=== PATIENT | female | born 1960 | race Caucasian/White ===

== ENCOUNTER 2019-07-10 13:11 | Day surgery (SDC) | payer BC ==
[~2019-07-10 13:11] MED LIST: Lidocaine 1%/Sod Bicarbonate in NS 8.4% 1 ML Syringe IDERM PRN; Sodium Chloride 0.9% 10 ML Syringe FLUSH PRN
[2019-07-10] MEDS ORDERED: Lidocaine 1% 50 ML MDV ONE (13:15)
[2019-07-10] MEDS ORDERED: Lactated Ringers 1,000 ML IV SCH (13:15)
[2019-07-10] MEDS ORDERED: Propofol 200 MG/20 ML SDV ONE (13:23)
[2019-07-10] MEDS ORDERED: Rocuronium 50 MG/5 ML Vial ONE (13:23)
[2019-07-10] MEDS ORDERED: fentaNYL 250 MCG/5 ML SDV ONE (13:23)
[2019-07-10] MEDS ORDERED: Lidocaine 1% 4 ML ONE (13:23)
[2019-07-10] MEDS ORDERED: Midazolam 1 MG/ML 2 ML SDV ONE (13:23)
[2019-07-10] MEDS ORDERED: Ondansetron 4 MG/2 ML SDV ONE (13:23)
[2019-07-10] MEDS ORDERED: Metoprolol Succinate 25 MG Tab.ER PO SCH (13:35)
--- NOTE | 2019-07-10 13:42 | PCM.PREANE ---
Preanesthetic Assessment - Procedure Proposed Procedure: lap choley - Anesthesia/Transfusion/Family Hx Anesthesia History: Prior Anesthesia Reaction Type of Anesthesia Reaction: Other (see below) (woke up with anesthesia) Family History of Anesthesia Reaction: No Transfusion History: No Prior Transfusion(s) - Review of Systems General: Fever, Weakness, Appetite (no appetite) Pulmonary: No Symptoms Cardiovascular: No Symptoms Gastrointestinal: Abdominal Pain (started wednesday afternoon), Decreased Appetite, Nausea, Vomiting (yesterday) Neurological: No Symptoms Other: Reports: Thyroid Problems (nodule on thyroid- no problems), Anxiety - Physical Assessment NPO Status Date: 07/09/19 NPO Status Time: 23:00 (sip of water) Vital Signs: 138/64 100 97% 99.9 Height: 5 ft 8 in Weight: 88.451 kg ASA Class: 2E Mental Status: Alert & Oriented x3 Airway Class: Mallampati = 1 Dentition: Reports: Normal Dentition Thyro-Mental Finger Breadths: 3 Mouth Opening Finger Breadths: 3 ROM/Head Extension: Full Lungs: Clear to Auscultation, Normal Respiratory Effort Cardiovascular: Regular Rate, Regular Rhythm - Allergies Allergies/Adverse Reactions: Allergies Allergy/AdvReac Type Severity Reaction Status Date / Time Penicillins Allergy Cannot Verified 07/10/19 13:35 Remember pregabalin [From Lyrica] Allergy Cannot Verified 07/10/19 13:35 Remember - Blood Blood Available: No - Anesthesia Plan Beta Rasheed: Metoprolol Med Last Dose Date: 07/10/19 Med Last Dose Time: 13:42 - Acknowledgements Anesthesia Type Planned: General Anesthesia Pt an Appropriate Candidate for the Planned Anesthesia: Yes Alternatives and Risks of Anesthesia Discussed w Pt/Guardian: Yes Pt/Guardian Understands and Agrees with Anesthesia Plan: Yes PreAnesthesia Questionnaire Cardiovascular History: Reports: Hypertension Respiratory History: Reports: Other (See Below) (seasonal allergies- not used inhaler for a while) Gastrointestinal History: Reports: GERD Psychiatric History: Reports: ADHD, Anxiety Oncologic (Cancer) History: Reports: None - Past Surgical History HEENT Surgical History: Reports: Oral Surgery Female Surgical History: Reports: Section, D&C Musculoskeletal Surgical History: Reports: Other (See Below) (ankle) - SUBSTANCE USE Smoking Status *Q: Never Smoker Tobacco Use Within Last Twelve Months: No Second Hand Smoke Exposure: No Days Per Week of Alcohol Use: 1 (rare) Recreational Drug Use History: No - CURRENT (IN HOUSE) MEDS Current Meds: Current Medications Lactated Ringer's (Ringers, Lactated) 1,000 mls @ 125 mls/hr IV ASDIRECTED CARSON Stop: 07/10/19 23:00 Lidocaine/Sodium Bicarbonate (Buffered Lidocaine 1% In Ns 8.4%) 0.25 ml IDERM ONETIME PRN PRN Reason: Prior to IV Start Stop: 07/10/19 23:00 Metoprolol Succinate (Toprol Xl) 25 mg PO ONETIME CARSON Sodium Chloride (Saline Flush) 10 ml FLUSH ASDIRECTED PRN PRN Reason: Keep Vein Open Stop: 07/10/19 23:00 Discontinued Medications Fentanyl (Sublimaze) Confirm Administered Dose 250 mcg .ROUTE .STK-MED ONE Stop: 07/10/19 13:24 Lidocaine HCl (Xylocaine-Mpf 1%) Confirm Administered Dose 4 mls @ as directed .ROUTE .STK-MED ONE Stop: 07/10/19 13:24 Lidocaine HCl (Xylocaine 1%) Confirm Administered Dose 50 ml .ROUTE .STK-MED ONE Stop: 07/10/19 13:16 Midazolam HCl (Versed 1 Mg/Ml) Confirm Administered Dose 2 mg .ROUTE .STK-MED ONE Stop: 07/10/19 13:24 Ondansetron HCl (Zofran) Confirm Administered Dose 4 mg .ROUTE .STK-MED ONE Stop: 07/10/19 13:24 Propofol (Diprivan 20 Ml) Confirm Administered Dose 200 mg .ROUTE .STK-MED ONE Stop: 07/10/19 13:24 Rocuronium Wesley (Zemuron) Confirm Administered Dose 50 mg .ROUTE .STK-MED ONE Stop: 07/10/19 13:24
[2019-07-10] MEDS ORDERED: Ertapenem 1 GM in Sodium Chloride 0.9% 50 ML IV STA (14:01)
[2019-07-10] MEDS ORDERED: Ondansetron 4 MG/2 ML SDV IVPUSH PRN (14:25)
[2019-07-10] MEDS ORDERED: fentaNYL 100 MCG/2 ML SDV IVPUSH PRN (14:25)
[2019-07-10] MEDS ORDERED: HYDROmorphone 0.5 MG/0.5 ML Syringe IVPUSH PRN (14:25)
[2019-07-10] MEDS ORDERED: Dexamethasone 4 MG/ML 5 ML MDV ONE (14:30)
[2019-07-10] MEDS ORDERED: HYDROmorphone 0.5 MG/0.5 ML Syringe ONE (14:42)
[2019-07-10] MEDS ORDERED: fentaNYL 100 MCG/2 ML SDV ONE (15:25)
[2019-07-10] MEDS ORDERED: Lactated Ringers 1,000 ML ONE (15:29)
[2019-07-10] MEDS ORDERED: Ketorolac 30 MG/ML SDV ONE (15:51)
--- NOTE | 2019-07-10 16:43 | PCM.POSTAN ---
POST ANESTHESIA ASSESSMENT - MENTAL STATUS Mental Status: Alert, Oriented, Somnolent - VITAL SIGNS Vital Signs: Last Vital Signs Temp 99.9 F 07/10/19 13:40 Pulse 100 07/10/19 13:51 Resp 20 07/10/19 13:40 BP 138/64 07/10/19 13:51 Pulse Ox 97 07/10/19 13:40 1637 132/63 88 11 98.3 100% - RESPIRATORY Respiratory Status: Respiratory Rate WNL, Airway Patent, O2 Saturation Stable - CARDIOVASCULAR CV Status: Pulse Rate WNL, Blood Pressure Stable - GASTROINTESTINAL GI Status: No Symptoms - PAIN Pain Score: 0 - POST OP HYDRATION Hydration Status: Adequate & Stable
--- NOTE | 2019-07-10 17:24 | PCM48HPAN ---
Post Anesthesia Note - EVALUATION WITHIN 48HRS OF ANESTHETIC Vital Signs in Normal Range: Yes Patient Participated in Evaluation: Yes Respiratory Function Stable: Yes Airway Patent: Yes Cardiovascular Function Stable: Yes Hydration Status Stable: Yes Pain Control Satisfactory: Yes Nausea and Vomiting Control Satisfactory: Yes Mental Status Recovered: Yes (feels better. Rests ) Vital Signs: Last Vital Signs Temp 98.1 F 07/10/19 17:15 Pulse 79 07/10/19 17:15 Resp 11 L 07/10/19 17:15 BP 119/63 07/10/19 17:15 Pulse Ox 95 07/10/19 17:15
--- NOTE | 2019-07-10 19:28 | OR ---
DATE OF OPERATION: 07/10/2019 SURGEON: Dex Butt MD PREOPERATIVE DIAGNOSIS: Acute cholecystitis. POSTOPERATIVE DIAGNOSIS: Acute cholecystitis. OPERATION PERFORMED: Laparoscopic cholecystectomy. ESTIMATED BLOOD LOSS: 50 mL. ANESTHESIA: General endotracheal. COMPLICATIONS: None. NEED FOR TOOL PROCUREMENT COORDINATOR: Skilled assistance was needed in this case. The business services assistant helped with patient positioning, preparation of the patient preop, managing the laparoscopic camera during the operation, and wound dressing at the end of the case. INDICATION AND CONSENT: The patient is a 58-year-old, who has been having biliary colic for many years. The patient had another attack on Wednesday, that pain persisted over the ensuing 2 days. Eventually, the patient went to the emergency department in [facility] for evaluation. Symptoms also included nausea and vomiting. Upon evaluation, white count was 12.5. The patient was afebrile. Ultrasound revealed findings concerning for acute cholecystitis. The patient was transferred here for surgical management. I saw the patient in the emergency department, confirmed the exam, and recommended to proceed with laparoscopic cholecystectomy, possible open. I discussed with the patient possible risks including infection, bleeding, injury to adjacent structures including the liver, stomach, biliary tree, bile leak, and wound complication. The patient understood, agreed to proceed with the procedure, and informed consent was obtained. DESCRIPTION OF PROCEDURE: The patient was taken to the operating room, placed in a supine position for induction of general endotracheal anesthesia. Preop antibiotic consisting of Invanz was provided, and the patient was appropriately padded and the abdomen was prepped and draped in the usual sterile fashion. Formal time-out was performed prior to the start of the procedure. We began the procedure by making infraumbilical incision after injecting local anesthetic consisting of 1% lidocaine. Then, Bianca was used to lift up the umbilical stalk. Veress needle was inserted. Abdomen was insufflated to 15 mmHg. Then, a 12 trocar was placed in this area. Upon inspection of the abdomen, there was no injury to the bowel due to Veress needle or trocar insertion. Three additional 5 mm trocars were placed, 1 in the subxiphoid area and 2 in the right subcostal areas. Immediately we visualized the gallbladder, it was extremely distended with omentum draped over the top of it. We used the laparoscopic needle to drain the excess fluid from the gallbladder, which was clear indicating hydrops. Once this was done, the gallbladder was lifted up and carefully we removed omentum that was adherent to the gallbladder. There was a lot of edematous inflammatory tissue and inflamed omentum around the gallbladder. Therefore, there was some bit of oozing and edema as we moved the omentum. Edema continued as we continued the dissection down into the infundibulum and gallbladder neck. Using blunt dissection with suction-casting repairer device, [place], and some cautery, we were able to dissect clear the cystic duct as well as the cystic artery. Any other structures that appeared to be blood vessels due to chronic inflammation were also dissected out and clipped. Once clearly we were able to obtain the critical view of safety, three clips were applied to the cystic duct, and another 3 clips were applied to the cystic artery, and then the transection was such that 2 clips remained in situ. Then, the gallbladder was removed from the gallbladder fossa with cautery. Once this was done, most oozing virtually stopped from the gallbladder fossa, any remaining oozing was stopped with cautery. Once this was done, the gallbladder was placed in the EndoCatch bag. The gallbladder fossa as well as the liver in the right upper quadrant were irrigated with 2 L of normal saline until the irrigant ran clear. Once this was done, the gallbladder was removed through the infraumbilical incision which required extension of fascial defect in order to pass this edematous gallbladder containing stones. Of note, there was no stone, no gallbladder content spillage in the abdomen. Once the gallbladder was removed, we reinspected the abdomen. There were no other abnormalities. The camera was removed and trocars were removed. We closed the fascia at the infraumbilical site with 0 Vicryl stitches and skin at all sites were closed with 4-0 Vicryl. Then, Dermabond was applied. This marked the end of the procedure. At the end of the procedure, all instruments, sharps, and sponges were counted and found to be correct x2. The patient was awoken from general anesthesia, extubated, and taken to the PACU in stable condition. The plan is for the patient to have pain controlled and tolerate fluids prior to discharge home. MMODAL /[id number] FRANKI
[2019-07-10] MEDS ORDERED: Acetaminophen/oxyCODONE 325-5 MG Tab PO PRN (19:54)
[2019-07-10] MEDS ORDERED: Ondansetron 4 MG/2 ML SDV IVPUSH ONE (22:06)
--- NOTE | 2019-07-12 17:26 | PCM.HP.2 ---
H&P History of Present Illness - General Date of Service: 07/10/19 Admit Problem/Dx: Lap cholecystectomy Source of Information: Patient History Limitations: Reports: No Limitations - History of Present Illness Initial Comments - Free Text/Narative: The patient has been having RUQ pain for months but since 2 days ago the pain has been unrelenting, RUQ, severe, associated with nausea and vomiting. The patient presented to the ED in [place] where WBC was 12.5, LFTs were negative and RUQ US was concerning for acute cholecystitis. Patient was transferred here for care. Onset of Symptoms: Reports: Gradual Duration of Symptoms: Reports: Day(s):, Constant Location: Reports: Abdomen Quality: Reports: Sharp Severity: Severe Improves with: Reports: None Worsens with: Reports: None Associated Symptoms: Reports: Fever/Chills, Nausea/Vomiting Right Upper Abdomen Pain Score (Numeric/FACES): 8 - Related Data Allergies/Adverse Reactions: Allergies Allergy/AdvReac Type Severity Reaction Status Date / Time Penicillins Allergy Cannot Verified 07/10/19 13:35 Remember pregabalin [From Lyrica] Allergy Cannot Verified 07/10/19 13:35 Remember Home Medications: Home Meds ALPRAZolam [Xanax] 0.25 mg PO TID PRN 07/10/19 [History] Dextroamphetamine/Amphetamine [Dextroamp-Amphet ER 25 mg Cap] 25 mg PO DAILY [History] Docusate Sodium [Colace] 100 mg PO BID 15 Days #30 capsule 07/10/19 [Rx] Levalbuterol Tartrate [Xopenex Hfa] 1 dose INH Q4H PRN 07/10/19 [History] Metoprolol Succinate 25 mg PO DAILY 07/10/19 [History] Mupirocin Oint [Bactroban Oint] 1 dose NASBOTH BID PRN 07/10/19 [History] Olopatadine HCl 1 drop EYEBOTH BID 07/10/19 [History] Sucralfate [Carafate] 10 ml PO QID 07/10/19 [History] hydrOXYzine HCL [hydrOXYzine] 25 mg PO BID PRN 07/10/19 [History] oxyCODONE HCl/Acetaminophen [Percocet 5-325 mg Tablet] 1 each PO Q6H 3 Days #12 tablet 07/10/19 [Rx] Past Medical History HEENT History: Reports: Impaired Vision, Other (See Below) Other HEENT History: WEARS GLASSES Cardiovascular History: Reports: Hypertension Respiratory History: Reports: Other (See Below) Other Respiratory History: CHEST PAIN HISTORY Gastrointestinal History: Reports: GERD SALVAGE CUTTER History: Reports: None Neurological History: Reports: None Psychiatric History: Reports: ADHD, Anxiety Endocrine/Metabolic History: Reports: None Hematologic History: Reports: None Immunologic History: Reports: None Oncologic (Cancer) History: Reports: None Dermatologic History: Reports: None - Past Surgical History Head Surgeries/Procedures: Reports: None HEENT Surgical History: Reports: Oral Surgery Cardiovascular Surgical History: Reports: None Respiratory Surgical History: Reports: None GI Surgical History: Reports: None Female Surgical History: Reports: Section, D&C Male Surgical History: Reports: None Endocrine Surgical History: Reports: None Neurological Surgical History: Reports: None Musculoskeletal Surgical History: Reports: Other (See Below) Other Musculoskeletal Surgeries/Procedures:: LEFT ANKLE FRACTURE Oncologic Surgical History: Reports: None Dermatological Surgical History: Reports: None Social & Family History - Tobacco Use Smoking Status *Q: Never Smoker Second Hand Smoke Exposure: No - Caffeine Use Caffeine Use: Reports: Coffee - Alcohol Use Days Per Week of Alcohol Use: 1 (rare) - Recreational Drug Use Recreational Drug Use: No H&P Review of Systems - Review of Systems: Review Of Systems: See Below General: Reports: Chills, Decreased Appetite HEENT: Reports: No Symptoms Pulmonary: Reports: No Symptoms Cardiovascular: Reports: No Symptoms Gastrointestinal: Reports: Abdominal Pain, Anorexia, Vomiting Genitourinary: Reports: No Symptoms Musculoskeletal: Reports: No Symptoms Skin: Reports: No Symptoms Psychiatric: Reports: No Symptoms Neurological: Reports: No Symptoms Hematologic/Lymphatic: Reports: No Symptoms Exam - Exam Exam: See Below - Vital Signs Vital Signs: Last Vital Signs Temp 99.1 F 07/10/19 17:43 Pulse 77 07/10/19 19:02 Resp 12 07/10/19 17:43 BP 123/61 07/10/19 19:02 Pulse Ox 96 07/10/19 19:02 Weight: 88.451 kg - Exam General: Alert, Oriented, Cooperative, Severe Distress HEENT: Conjunctiva Clear Neck: Supple, Trachea Midline Lungs: Clear to Auscultation, Normal Respiratory Effort Cardiovascular: Regular Rate, Regular Rhythm, Normal S1, Normal S2 GI/Abdominal Exam: Normal Bowel Sounds, Soft, No Organomegaly, No Distention, Tender (RUQ, no rebound) Extremities: Normal Inspection Sepsis Event Note - Evaluation Sepsis Screening Result: No Definite Risk Problem List Initiated/Reviewed/Updated: No Assessment/Plan Comment:: Patient has acute cholecystitis. I recommended we proceed with laparoscopic cholecystectomy, possible open. Risks, benefits and alternatives were discussed with the patient and informed consent was obtained. - Mortality Measure Prognosis:: Good
== END 2019-07-10 22:38 | disposition home or self-care (01) ==
LOC: JD.MS 13:11 → JD.SDS 13:11
PROVIDERS: ATTEND Surgery
DX: K80.12 Calculus of gallbladder with acute and chronic cholecystitis without obstruction (principal); I10 Essential (primary) hypertension; Z88.0 Allergy status to penicillin; Z88.8 Allergy status to other drugs, medicaments and biological substances; Z79.899 Other long term (current) drug therapy
CPT/HCPCS: 47562; A9270; J1100; J1170; J1885; J2001; J2250; J2405; J2704; J2710; J3010; J7120; 00790

== ENCOUNTER 2021-11-28 18:33 | Emergency (ER) | payer BC | END 2021-11-28 20:30 | disposition home or self-care (01) | LOC: JD.ED 18:33 | DX: S82.831A Other fracture of upper and lower end of right fibula, initial encounter for closed fracture (principal); I10 Essential (primary) hypertension; Z88.0 Allergy status to penicillin; Z88.8 Allergy status to other drugs, medicaments and biological substances; Z86.16 Personal history of COVID-19; W18.40XA Slipping, tripping and stumbling without falling, unspecified, initial encounter | CPT/HCPCS: 73610-26-RT; 73610-RT; 73630-26-RT; 73630-RT; 99283; 99284 ==

== ENCOUNTER 2022-07-21 16:35 | Emergency (ER) | payer BC ==
[2022-07-21] MEDS ORDERED: Levofloxacin 750 MG Tab PO STA (19:09)
== END 2022-07-21 19:45 | disposition home or self-care (01) ==
LOC: JD.ED 16:35
DX: N12 Tubulo-interstitial nephritis, not specified as acute or chronic (principal); R79.89 Other specified abnormal findings of blood chemistry; I10 Essential (primary) hypertension; Z88.0 Allergy status to penicillin; Z88.8 Allergy status to other drugs, medicaments and biological substances; Z86.16 Personal history of COVID-19
CPT/HCPCS: 36415; 80053; 81001; 85007; 85027; 86140; 87086; 99283; A9270; 87088; 87186